=== PATIENT | female | born 1965 | race African-American/Black ===

== ENCOUNTER → 2017-07-02 | Outpatient (CLI) | payer BC | LOC: MHCPAIN 08:59 | DX: G89.29 Other chronic pain (principal); M47.817 Spondylosis without myelopathy or radiculopathy, lumbosacral region; M54.16 Radiculopathy, lumbar region; M48.061 Spinal stenosis, lumbar region without neurogenic claudication; M70.60 Trochanteric bursitis, unspecified hip | CPT/HCPCS: G0463 ==

== ENCOUNTER → 2017-07-04 | Outpatient (CLI) | payer BC | LOC: MHCPAIN 07:51 | DX: M70.62 Trochanteric bursitis, left hip (principal); M70.61 Trochanteric bursitis, right hip | CPT/HCPCS: J1040 ==

== ENCOUNTER → 2017-09-03 | Outpatient (CLI) | payer BC | LOC: MHCPAIN 08:03 | DX: G89.29 Other chronic pain (principal); M47.817 Spondylosis without myelopathy or radiculopathy, lumbosacral region; M53.3 Sacrococcygeal disorders, not elsewhere classified; M70.60 Trochanteric bursitis, unspecified hip; F17.210 Nicotine dependence, cigarettes, uncomplicated | CPT/HCPCS: G0463 ==

== ENCOUNTER → 2017-09-25 | Outpatient (CLI) | payer BC | LOC: MHCPAIN 10:34 | DX: M47.817 Spondylosis without myelopathy or radiculopathy, lumbosacral region (principal); M46.96 Unspecified inflammatory spondylopathy, lumbar region ==

== ENCOUNTER → 2017-09-30 | Outpatient (CLI) | payer BC | LOC: MHCPAIN 09:39 | DX: G89.29 Other chronic pain (principal); M47.817 Spondylosis without myelopathy or radiculopathy, lumbosacral region; M53.3 Sacrococcygeal disorders, not elsewhere classified | CPT/HCPCS: G0463 ==

== ENCOUNTER → 2017-10-23 | Outpatient (CLI) | payer BC | LOC: MHCPAIN 08:38 | DX: M47.817 Spondylosis without myelopathy or radiculopathy, lumbosacral region (principal) | CPT/HCPCS: J1040; J2250; J3010; Q9967 ==

== ENCOUNTER → 2017-11-20 | Outpatient (CLI) | payer BC | LOC: MHCPAIN 07:30 | DX: M47.817 Spondylosis without myelopathy or radiculopathy, lumbosacral region (principal) | CPT/HCPCS: J2250; J3010 ==

== ENCOUNTER → 2018-01-12 | Outpatient (CLI) | payer BC | LOC: MHCPAIN 08:08 | DX: G89.29 Other chronic pain (principal); M47.817 Spondylosis without myelopathy or radiculopathy, lumbosacral region; M54.16 Radiculopathy, lumbar region; M53.3 Sacrococcygeal disorders, not elsewhere classified | CPT/HCPCS: G0463 ==

== ENCOUNTER → 2018-05-06 | Outpatient (CLI) | payer BC | LOC: MHCPAIN 14:14 | DX: G89.29 Other chronic pain (principal); M47.817 Spondylosis without myelopathy or radiculopathy, lumbosacral region; M54.16 Radiculopathy, lumbar region; M53.3 Sacrococcygeal disorders, not elsewhere classified | CPT/HCPCS: G0463 ==

== ENCOUNTER → 2018-05-13 | Outpatient (CLI) | payer BC | LOC: MHCPAIN 09:47 | DX: M25.551 Pain in right hip (principal); M25.552 Pain in left hip | CPT/HCPCS: J1040 ==

== ENCOUNTER → 2018-08-18 | Outpatient (CLI) | payer BC | LOC: MHCPAIN 07:53 | DX: M47.817 Spondylosis without myelopathy or radiculopathy, lumbosacral region (principal); G89.29 Other chronic pain; M53.3 Sacrococcygeal disorders, not elsewhere classified | CPT/HCPCS: G0463 ==

== ENCOUNTER → 2018-10-26 | Outpatient (CLI) | payer BC | LOC: MHCPAIN 10:44 | DX: M47.817 Spondylosis without myelopathy or radiculopathy, lumbosacral region (principal); M53.3 Sacrococcygeal disorders, not elsewhere classified; G89.29 Other chronic pain | CPT/HCPCS: G0463 ==

== ENCOUNTER → 2018-12-01 | Outpatient (CLI) | payer BC | LOC: MHCPAIN 10-15 14:40 | DX: M25.552 Pain in left hip (principal); M25.551 Pain in right hip; G89.29 Other chronic pain; M47.817 Spondylosis without myelopathy or radiculopathy, lumbosacral region; M53.3 Sacrococcygeal disorders, not elsewhere classified | CPT/HCPCS: G0463; J1040 ==

== ENCOUNTER → 2019-02-02 | Outpatient (CLI) | payer BC | LOC: MHCPAIN 12:58 | DX: G89.29 Other chronic pain (principal); M47.817 Spondylosis without myelopathy or radiculopathy, lumbosacral region; M53.3 Sacrococcygeal disorders, not elsewhere classified | CPT/HCPCS: G0463 ==

== ENCOUNTER → 2019-03-24 | Outpatient (CLI) | payer BC | LOC: MHCPAIN 08:55 | DX: M25.552 Pain in left hip (principal); M25.551 Pain in right hip | CPT/HCPCS: J1040 ==

== ENCOUNTER → 2019-07-13 | Outpatient (CLI) | payer BC | LOC: MHCPAIN 08:09 | DX: M47.817 Spondylosis without myelopathy or radiculopathy, lumbosacral region (principal); M53.3 Sacrococcygeal disorders, not elsewhere classified | CPT/HCPCS: G0463 ==

== ENCOUNTER → 2020-01-12 | Outpatient (CLI) | payer BC | LOC: MHCPAIN 07:50 | DX: M47.817 Spondylosis without myelopathy or radiculopathy, lumbosacral region (principal); M54.5 Low back pain; M53.3 Sacrococcygeal disorders, not elsewhere classified; G89.29 Other chronic pain | CPT/HCPCS: G0463 ==

== ENCOUNTER → 2020-01-26 | Outpatient (CLI) | payer BC | LOC: MHCPAIN 08:09 | DX: M70.61 Trochanteric bursitis, right hip (principal); M70.62 Trochanteric bursitis, left hip; M25.551 Pain in right hip; M25.552 Pain in left hip | CPT/HCPCS: J1040 ==

== ENCOUNTER → 2020-03-03 | Outpatient (CLI) | payer BC | LOC: COL.RAD 09:24 | DX: K59.00 Constipation, unspecified (principal) ==

== ENCOUNTER → 2020-03-07 | Outpatient (CLI) | payer BC | LOC: COL.RAD 09:50 | DX: K59.00 Constipation, unspecified (principal); Z90.49 Acquired absence of other specified parts of digestive tract ==

== ENCOUNTER → 2020-05-30 | Outpatient (CLI) | payer BC | LOC: MHCPAIN 08:09 | DX: M47.817 Spondylosis without myelopathy or radiculopathy, lumbosacral region (principal); M54.5 Low back pain; M53.3 Sacrococcygeal disorders, not elsewhere classified; G89.29 Other chronic pain | CPT/HCPCS: G0463 ==

== ENCOUNTER 2020-06-16 11:01 | Day surgery (SDC) | payer BC ==
[~2020-06-16] VITALS: Ht 160 cm; Wt 69.9 kg
[2020-06-16] VITALS (7 sets, daily range): BP systolic 109–127; BP diastolic 48–70; PULSE 51–62; TEMP 97.6–97.7
[2020-06-16] MEDS ORDERED: CELEXA40 MG PO (11:28)
[2020-06-16] MEDS ORDERED: KLONOPIN 1MG1 MG PO (11:29)
[2020-06-16] MEDS ORDERED: PROTONIX 40MG T40 MG PO (11:29)
[2020-06-16] MEDS ORDERED: CYMBALTA 30MG30 MG PO (11:29)
[2020-06-16] MEDS ORDERED: NEURONTIN600 MG/TAB PO (11:30)
[2020-06-16] MEDS ORDERED: SYNTHROID0.075 MG/T PO (11:30)
[2020-06-16] MEDS ORDERED: LIDODERM 5% PATC1 EA TP (11:31)
[2020-06-16] MEDS ORDERED: ZANAFLEX 4MG TAB4 MG PO (11:32)
[2020-06-16] MEDS ORDERED: VITAMIN D31000 IU PO (11:32)
[2020-06-16] MEDS ORDERED: CRANBERRY 100 M1 SGL PO (11:33)
[2020-06-16] MEDS ORDERED: MYRBETR50MG PO (11:33)
[2020-06-16] MEDS ORDERED: BETIMOL 0.5% OPH5 ML OU (11:34)
[2020-06-16] MEDS ORDERED: TYLENOL 500MG500 MG PO (11:35)
[2020-06-16] MEDS ORDERED: ALEVE 220MG220 MG PO (11:35)
[2020-06-16] MEDS ORDERED: TRULANCE3 MG PO (11:36)
[2020-06-16] MEDS ORDERED: VTAMINC250TA PO (11:36)
[2020-06-16] MEDS ORDERED: B-12 500 MCG PO (11:37)
--- NOTE | 2020-06-16 14:10 | NUR ---
Patient arrives to [facility] [place] [facility] via cart post-op. She is drowsy, but easily awakens to voice and responds appropriately. Monitoring is applied -VSS and WNL on room air. Her surgical incision is clean/dry/glue intact. SHe denies any pain or nausea. Her spouse is at the bedside. Call light in reach.
--- NOTE | 2020-06-16 14:25 | NUR ---
VSS and WNL on room air. Patient complains that she is cold - she is given more warm blankets for comfort and denies any further needs.
--- NOTE | 2020-06-16 14:40 | NUR ---
Patient is asleep. VSS.
--- NOTE | 2020-06-16 15:00 | NUR ---
Patient is asleep. She responds to voice and light touch. VSS On room air.
--- NOTE | 2020-06-16 15:30 | NUR ---
VSS and WNL on room air. Patient is awake, alert. She requests and receives coffee and crackers. Denies pain or nausea.
--- NOTE | 2020-06-16 16:07 | NUR ---
Patient ambulates to the restroom with standby assist and steady gait. She voids large amount of clear, yellow urine. Returns to room.
--- NOTE | 2020-06-16 16:29 | NUR ---
Patient has met discharge criteria. Discharge instructions are discussed. She denies any questions and verbalizes understanding. PIV is removed with catheter intact and hemostasis achieved. She changes to her clothing independently. She is escorted to the exit via wheelchair by staff and discharged to home with ride in private vehicle at 1629.
== END 2020-06-16 16:29 | disposition home or self-care (01) ==
LOC: SDCO 11:01
DX: N39.41 Urge incontinence (principal); F32.9 Major depressive disorder, single episode, unspecified; K21.9 Gastro-esophageal reflux disease without esophagitis; I10 Essential (primary) hypertension; E03.9 Hypothyroidism, unspecified; Z90.49 Acquired absence of other specified parts of digestive tract; Z90.710 Acquired absence of both cervix and uterus; Z88.5 Allergy status to narcotic agent; Z88.2 Allergy status to sulfonamides; Z91.048 Other nonmedicinal substance allergy status; F17.210 Nicotine dependence, cigarettes, uncomplicated; Z80.3 Family history of malignant neoplasm of breast; Z83.3 Family history of diabetes mellitus; Z80.0 Family history of malignant neoplasm of digestive organs; Z80.1 Family history of malignant neoplasm of trachea, bronchus and lung
CPT/HCPCS: C1767; C1787; C1894; J0690; J2704; J7120

== ENCOUNTER → 2020-06-19 | Outpatient (CLI) | payer BC ==
[~2020-06-19] MED LIST: ALEVE 220MG220 MG PO; B-12 500 MCG PO; BETIMOL 0.5% OPH5 ML OU; CELEXA40 MG PO; CRANBERRY 100 M1 SGL PO; CYMBALTA 30MG30 MG PO; KLONOPIN 1MG1 MG PO; LIDODERM 5% PATC1 EA TP; MYRBETR50MG PO; NEURONTIN600 MG/TAB PO; PROTONIX 40MG T40 MG PO; SYNTHROID0.075 MG/T PO; TRULANCE3 MG PO; TYLENOL 500MG500 MG PO; VITAMIN D31000 IU PO; VTAMINC250TA PO; ZANAFLEX 4MG TAB4 MG PO
== END ==
LOC: MHCPAIN 08:16

== ENCOUNTER → 2020-07-17 | Outpatient (CLI) | payer BC | LOC: MHCPAIN 13:15 | DX: M47.817 Spondylosis without myelopathy or radiculopathy, lumbosacral region (principal); M54.5 Low back pain; G89.29 Other chronic pain | CPT/HCPCS: G0463 ==

== ENCOUNTER → 2020-09-06 | Outpatient (CLI) | payer BC | LOC: MHCPAIN 13:15 | DX: M25.551 Pain in right hip (principal); M25.552 Pain in left hip; M70.61 Trochanteric bursitis, right hip; M70.62 Trochanteric bursitis, left hip; G89.29 Other chronic pain | CPT/HCPCS: G0463; J1040 ==

== ENCOUNTER → 2021-03-07 | Outpatient (CLI) | payer BC | LOC: MHCPAIN 07:55 | DX: M70.61 Trochanteric bursitis, right hip (principal); M25.551 Pain in right hip; M79.2 Neuralgia and neuritis, unspecified | CPT/HCPCS: G0463 ==

== ENCOUNTER → 2022-01-15 | Outpatient (CLI) | payer BC | LOC: MHCPAIN 15:14 | DX: M54.50 Low back pain, unspecified (principal); M53.3 Sacrococcygeal disorders, not elsewhere classified; M47.896 Other spondylosis, lumbar region; M79.2 Neuralgia and neuritis, unspecified | CPT/HCPCS: G0463 ==

== ENCOUNTER → 2022-03-21 | Outpatient (CLI) | payer BC | LOC: MHCPAIN 02-28 14:04 | DX: M47.817 Spondylosis without myelopathy or radiculopathy, lumbosacral region (principal); M54.50 Low back pain, unspecified; M53.3 Sacrococcygeal disorders, not elsewhere classified | CPT/HCPCS: G0463; J1100; J2250; J3010 ==

== ENCOUNTER → 2022-05-22 | Outpatient (CLI) | payer BC | LOC: MHCPAIN 08:00 | DX: M53.3 Sacrococcygeal disorders, not elsewhere classified (principal); M54.50 Low back pain, unspecified; M47.817 Spondylosis without myelopathy or radiculopathy, lumbosacral region; M79.2 Neuralgia and neuritis, unspecified | CPT/HCPCS: G0463 ==

== ENCOUNTER → 2022-06-03 | Outpatient (CLI) | payer BC | LOC: MHCPAIN 08:56 | DX: M53.3 Sacrococcygeal disorders, not elsewhere classified (principal); M47.817 Spondylosis without myelopathy or radiculopathy, lumbosacral region | CPT/HCPCS: G0260; J1040; Q9967 ==

== ENCOUNTER → 2023-09-22 | Outpatient (CLI) | payer BC ==
[~2023-09-22] MED LIST changes: +Iohexol 300 - 10 ML VIAL ONE; +Lidocaine PF 2% (20 MG/ML) 2 ML VIAL ONE
== END ==
LOC: MHCPAIN 15:25
DX: M54.16 Radiculopathy, lumbar region (principal)
CPT/HCPCS: J1100; Q9967

== ENCOUNTER → 2023-10-20 | Outpatient (CLI) | payer BC ==
[~2023-10-20] MED LIST changes: -Iohexol 300 - 10 ML VIAL ONE; -Lidocaine PF 2% (20 MG/ML) 2 ML VIAL ONE
== END ==
LOC: MHCPAIN 07:51
DX: M47.816 Spondylosis without myelopathy or radiculopathy, lumbar region (principal); M48.061 Spinal stenosis, lumbar region without neurogenic claudication; G96.191 Perineural cyst
CPT/HCPCS: G0463